=== PATIENT | female | born 1945 | race African-American/Black ===

== ENCOUNTER 2019-03-16 14:10 | Emergency (ER) | payer BC, MEDICARE, OTHER ==
[~2019-03-16] VITALS: Ht 160 cm; Wt 57.0 kg
[~2019-03-16 14:10] MED LIST: COUMADIN; LASIX
[2019-03-16] MEDS ORDERED: APIX5TAB PO (14:18)
[2019-03-16] MEDS ORDERED: TRAMADOL 50MG TABLET PO ONE (15:15)
[2019-03-16] MEDS ORDERED: IBUPROFEN 400MG TABLET PO ONE (15:15)
[2019-03-16 15:26] LABS: BASOPHILS % 0.8 % (0.0-2.0); EOSINOPHILS % 0.9 % (0.0-5.0); HEMATOCRIT. 36.6 % (36.0-48.0); HEMOGLOBIN. 12.4 g/dL (12.0-16.0); LYMPHOCYTES % 21.8 % (20.0-50.0); MEAN CORPUSCULAR HEMOGLOBIN 29.9 pg (28.0-32.0); MEAN PLATELET VOLUME 9.6 fl (7.4-10.4); MONOCYTES % 13.1 % (2.0-8.0); NEUTROPHILS % 63.4 % (40.0-76.0); PLATELET 195 x1000/uL (130-400); RED BLOOD CELL COUNT 4.16 mill/uL (4.2-5.4); RED CELL DISTRIBUTION WIDTH 13.5 % (11.6-14.6)
[2019-03-16 15:29] LABS: CHLORIDE 98 mEq/L (98-107)
[2019-03-16 15:31] LABS: INR 1.1; PARTIAL THROMBOPLASTIN TIME 28.6 sec (23.4-31.0)
[2019-03-16 17:59] VITALS: BP 126/56
== END 2019-03-16 18:02 | disposition home or self-care (01) ==
LOC: ER 14:10
DX: G62.9 Polyneuropathy, unspecified (principal); I10 Essential (primary) hypertension; Z86.718 Personal history of other venous thrombosis and embolism; Z79.01 Long term (current) use of anticoagulants
CPT/HCPCS: 36415; 71045; 93005; 93970; 99284

== ENCOUNTER 2023-07-08 08:30 | Inpatient (IN) | payer OTHER ==
[~2023-07-08] VITALS: Ht 157.5 cm; Wt 54.9 kg
[~2023-07-08 08:30] MED LIST changes: +APIX5TAB PO; +ATOR40TA70 MT; +BETA15CR5 TP; -COUMADIN; +DESO59LO TP; -LASIX; +LEVO-65 MT; +LOSA50TA41 MT; +THIO100C2 PO; +TIMO15DR12 EACHEYE
[2023-07-08 09:33] LABS: BASOPHILS % 0.7 % (0.0-2.0); EOSINOPHILS % 0.3 % (0.0-5.0); HEMOGLOBIN. 11.1 g/dL (12.0-16.0); LYMPHOCYTES % 17.1 % (20.0-50.0); MEAN CORPUSCULAR HEMOGLOBIN 28.9 pg (28.0-32.0); MEAN CORPUSCULAR HGB CONC 32.5 g/dL (31.0-37.0); MEAN CORPUSCULAR VOLUME 88.9 fL (81.0-99.0); MONOCYTES % 9.9 % (2.0-8.0); PLATELET 216 x1000/uL (130-400); RED BLOOD CELL COUNT 3.83 mill/uL (4.2-5.4); RED CELL DISTRIBUTION WIDTH 13.4 % (11.6-14.6); WHITE BLOOD COUNT 5.8 x1000/uL (4.5-11.0)
[2023-07-08] MEDS: MORPHINE SULFATE 4 MG/ML INJ (FOR IV/IM USE) IV STA (09:35)
[2023-07-08 09:51] LABS: PROTHROMBIN TIME 10.7 sec (9.6-11.0)
[2023-07-08 09:53] LABS: CLARITY URINE CLOUDY (CLEAR); COLOR URINE RED (YELLOW); GLUCOSE URINE NEGATIVE (NEGATIVE); KETONES URINE NEGATIVE (NEGATIVE); LEUKOCYTE ESTERASE URINE 3+ (NEGATIVE); NITRITE URINE POSITIVE (NEGATIVE); OCCULT BLOOD URINE 1+ (NEGATIVE); PROTEIN URINE 2+ (NEGATIVE); SPECIFIC GRAVITY URINE 1.017 (1.005-1.030); UROBILINOGEN URINE 0.2 E.U./dL (0.2-1.0)
[2023-07-08 09:54] LABS: ALANINE AMINOTRANSFERASE 16 IU/L (10-49); ALBUMIN 4.8 g/dL (3.2-4.8); ASPARTATE AMINOTRANSFERASE 26 IU/L (<34); BILIRUBIN TOTAL 0.7 mg/dL (0.1-1.0); CALCIUM 9.9 mg/dL (8.7-10.4); CARBON DIOXIDE 28 mEq/L (21-32); CHLORIDE 105 mEq/L (98-107); GLUCOSE 89 mg/dL (70-105); POTASSIUM 3.8 mEq/L (3.5-5.1); PROTEIN TOTAL 8.2 g/dL (6.0-8.3); SODIUM 138 mEq/L (136-145); UREA NITROGEN BLOOD 22 mg/dL (9-23)
[2023-07-08 10:17] LABS: BACTERIA URINE 1+; RBC URINE TNTC /hpf (0-2); SQUAMOUS EPITHELIAL CELL URINE 1+ /lpf (RARE/1+); WBC URINE 50-100 /hpf (0-2); YEAST URINE NONE SEEN
[2023-07-08] MEDS: HYDROMORPHONE HCL/PF 2MG/ML CPJ IV ONE (12:25)
[2023-07-08 16:19] VITALS: BP 142/55; PULSE 65; RESP 18; TEMP 96.4
[2023-07-08 20:00] VITALS: BP 112/78; PULSE 66; RESP 18; TEMP 98.1
[2023-07-08] MEDS ORDERED: ACETAMINOPHEN 325MG TABLET PO PRN (22:15)
[2023-07-08] MEDS ORDERED: CLONIDINE 0.1MG TABLET PO PRN (22:15)
[2023-07-08] MEDS ORDERED: IPRATROPIUM/ALBUTEROL 0.5-3(2.5)MG/3ML NEB HHN PRN (22:15)
[2023-07-09] VITALS: BP 115/55; PULSE 67; RESP 18; TEMP 97.5
[2023-07-09] MEDS: SODIUM CHLORIDE 0.9% 1,000 ML IV SCH (00:09)
[2023-07-09] MEDS: LEVOFLOXACIN 500MG PREMIX 100 ML IV SCH (00:09)
[2023-07-09 04:00] VITALS: BP 107/52; PULSE 63; RESP 18; TEMP 97.7
[2023-07-09] MEDS: ONDANSETRON HCL 4MG/2ML INJ IV PRN (05:47)
[2023-07-09] MEDS: HYDROCODONE/ACETAMINOPHEN 5/325MG TABLET PO PRN (05:47)
[2023-07-09 06:48] LABS: CREATINE KINASE 60 IU/L (34-145)
[2023-07-09 07:04] LABS: TROPONIN I HIGH SENSITIVITY 91 ng/L (3.0-34)
[2023-07-09 08:00] VITALS: BP 129/51; PULSE 58; RESP 19; TEMP 97.5
[2023-07-09 12:00] VITALS: BP 101/49; PULSE 55; RESP 18; TEMP 97.1
[2023-07-09 16:00] VITALS: BP 103/52; PULSE 61; RESP 18; TEMP 97.7
[2023-07-09] MEDS ORDERED: NALOXONE HCL 0.4MG/ML VIAL IV PRN (17:15)
[2023-07-09] MEDS: SODIUM CHLORIDE 0.45% 1,000 ML IV SCH (17:30)
[2023-07-09 18:51] LABS: CREATINE KINASE MB FRACTION 1.6 ng/mL (0.5-3.6)
[2023-07-09 20:00] VITALS: BP 114/43; PULSE 62; RESP 17; TEMP 97.9
[2023-07-09] MEDS: LEVOFLOXACIN 250MG PREMIX 50 ML IV SCH (23:17)
[2023-07-10] VITALS: BP 108/49; PULSE 67; RESP 19; TEMP 98.2
[2023-07-10 04:00] VITALS: BP 105/45; PULSE 61; RESP 18; TEMP 97.7
[2023-07-10 08:00] VITALS: BP 126/52; PULSE 65; RESP 18; TEMP 98
[2023-07-10 10:40] LABS: BASOPHILS % 0.1 % (0.0-2.0); HEMATOCRIT. 27.1 % (36.0-48.0); LYMPHOCYTES % 12.7 % (20.0-50.0); MEAN CORPUSCULAR HEMOGLOBIN 28.6 pg (28.0-32.0); MEAN CORPUSCULAR VOLUME 86.7 fL (81.0-99.0); MEAN PLATELET VOLUME 9.6 fl (7.4-10.4); MONOCYTES % 11.5 % (2.0-8.0); NEUTROPHILS % 75.7 % (40.0-76.0); PLATELET 151 x1000/uL (130-400); RED BLOOD CELL COUNT 3.13 mill/uL (4.2-5.4); RED CELL DISTRIBUTION WIDTH 13.4 % (11.6-14.6); WHITE BLOOD COUNT 6.1 x1000/uL (4.5-11.0)
[2023-07-10 11:14] LABS: ALANINE AMINOTRANSFERASE 8 IU/L (10-49); ALBUMIN 3.6 g/dL (3.2-4.8); ASPARTATE AMINOTRANSFERASE 18 IU/L (<34); BILIRUBIN TOTAL 0.4 mg/dL (0.1-1.0); CALCIUM 8.8 mg/dL (8.7-10.4); CARBON DIOXIDE 29 mEq/L (21-32); CHLORIDE 104 mEq/L (98-107); CREATINE KINASE 46 IU/L (34-145); CREATINE KINASE MB FRACTION 0.8 ng/mL (0.5-3.6); CREATININE 1.3 mg/dL (0.6-1.0); GLUCOSE 157 mg/dL (70-105); POTASSIUM 3.8 mEq/L (3.5-5.1); SODIUM 136 mEq/L (136-145); UREA NITROGEN BLOOD 19 mg/dL (9-23)
[2023-07-10 11:26] LABS: PROTEIN TOTAL 5.6 g/dL (6.0-8.3)
[2023-07-10 11:28] LABS: TROPONIN I HIGH SENSITIVITY 66 ng/L (3.0-34)
[2023-07-10 11:34] VITALS: BP 131/58; PULSE 73; RESP 18; TEMP 97.8
[2023-07-10 15:33] VITALS: BP 109/57; PULSE 61; RESP 18; TEMP 98
[2023-07-10 20:00] VITALS: BP 100/55; PULSE 63; RESP 20; TEMP 99
[2023-07-11] VITALS: BP 106/55; PULSE 61; RESP 20; TEMP 98.6
[2023-07-11 04:00] VITALS: BP 126/60; PULSE 65; RESP 20; TEMP 98.6
[2023-07-11 06:21] LABS: BASOPHILS % 0.5 % (0.0-2.0); EOSINOPHILS % 0.3 % (0.0-5.0); HEMATOCRIT. 25.7 % (36.0-48.0); HEMOGLOBIN. 8.6 g/dL (12.0-16.0); LYMPHOCYTES % 17.6 % (20.0-50.0); MEAN CORPUSCULAR HEMOGLOBIN 30.4 pg (28.0-32.0); MEAN CORPUSCULAR HGB CONC 33.5 g/dL (31.0-37.0); MEAN CORPUSCULAR VOLUME 90.6 fL (81.0-99.0); MEAN PLATELET VOLUME 10.4 fl (7.4-10.4); MONOCYTES % 12.4 % (2.0-8.0); NEUTROPHILS % 69.2 % (40.0-76.0); PLATELET 146 x1000/uL (130-400); RED BLOOD CELL COUNT 2.84 mill/uL (4.2-5.4); RED CELL DISTRIBUTION WIDTH 13.4 % (11.6-14.6); WHITE BLOOD COUNT 5.6 x1000/uL (4.5-11.0)
[2023-07-11 06:25] LABS: CALCIUM 8.8 mg/dL (8.7-10.4); CREATININE 1.1 mg/dL (0.6-1.0); POTASSIUM 4.3 mEq/L (3.5-5.1)
[2023-07-11 07:50] VITALS: BP 124/48; PULSE 68; RESP 20; TEMP 98.7
[2023-07-11 11:41] VITALS: BP 111/51; PULSE 69; RESP 18; TEMP 98
[2023-07-11 16:31] VITALS: BP 134/59; PULSE 66; RESP 19; TEMP 98.5
[2023-07-11] MEDS: LEVOFLOXACIN 250MG TABLET PO SCH (17:29)
[2023-07-11 20:00] VITALS: BP 139/58; PULSE 77; RESP 20; TEMP 98.2
[2023-07-12] VITALS: BP 142/67; PULSE 83; RESP 20; TEMP 98.2
[2023-07-12 04:00] VITALS: BP 124/50; PULSE 72; RESP 18; TEMP 97.9
[2023-07-12 08:02] VITALS: BP 112/48; PULSE 60; RESP 18; TEMP 98.7
[2023-07-12 11:39] VITALS: BP 106/40; PULSE 67; RESP 18; TEMP 97.5
[2023-07-12 16:26] VITALS: BP 150/58; PULSE 62; RESP 18; TEMP 97.9
[2023-07-12 18:21] LABS: BASOPHILS % 0.4 % (0.0-2.0); EOSINOPHILS % 0.1 % (0.0-5.0); HEMATOCRIT. 27.5 % (36.0-48.0); HEMOGLOBIN. 9.1 g/dL (12.0-16.0); LYMPHOCYTES % 15.7 % (20.0-50.0); MEAN CORPUSCULAR HEMOGLOBIN 29.4 pg (28.0-32.0); MEAN CORPUSCULAR HGB CONC 32.9 g/dL (31.0-37.0); MEAN CORPUSCULAR VOLUME 89.4 fL (81.0-99.0); MEAN PLATELET VOLUME 9.5 fl (7.4-10.4); MONOCYTES % 13.3 % (2.0-8.0); NEUTROPHILS % 70.5 % (40.0-76.0); PLATELET 176 x1000/uL (130-400); RED BLOOD CELL COUNT 3.08 mill/uL (4.2-5.4); RED CELL DISTRIBUTION WIDTH 13.3 % (11.6-14.6); WHITE BLOOD COUNT 5.8 x1000/uL (4.5-11.0)
[2023-07-12 18:37] LABS: ALANINE AMINOTRANSFERASE 8 IU/L (10-49); ASPARTATE AMINOTRANSFERASE 19 IU/L (<34); BILIRUBIN TOTAL 0.6 mg/dL (0.1-1.0); CALCIUM 8.9 mg/dL (8.7-10.4); CARBON DIOXIDE 27 mEq/L (21-32); CHLORIDE 105 mEq/L (98-107); CREATININE 0.9 mg/dL (0.6-1.0); GLUCOSE 88 mg/dL (70-105); PROTEIN TOTAL 6.4 g/dL (6.0-8.3); SODIUM 136 mEq/L (136-145); UREA NITROGEN BLOOD 11 mg/dL (9-23)
[2023-07-12 20:00] VITALS: BP 142/62; PULSE 74; RESP 20; TEMP 98.5
[2023-07-13] VITALS: BP 110/51; PULSE 67; RESP 18; TEMP 97.3
[2023-07-13 04:00] VITALS: BP 106/50; PULSE 66; RESP 18; TEMP 97.8
[2023-07-13 08:00] VITALS: BP 134/50; PULSE 62; RESP 18; TEMP 96.1
[2023-07-13 12:00] VITALS: BP 119/49; PULSE 56; RESP 18; TEMP 97.7
[2023-07-13] MEDS: LEVOFLOXACIN 250MG TABLET PO SCH (12:34)
[2023-07-13 13:09] VITALS: BP 119/59; PULSE 71; TEMP 98.8; O2SAT 100
[2023-07-14] MEDS ORDERED: LEVOFLOXACIN 500MG TABLET PO SCH (11:00)
== END 2023-07-13 13:45 | disposition home or self-care (01) | DRG 690 ==
LOC: ER 08:30 → 5WST 12:43 → EDBEDREQTM 12:45 → EDBEDREQ 12:45 → EDBEDREQSVC 12:45 → 6EST 15:50 → 7WST 07-09 09:32
PROVIDERS: ADMIT Internal Medicine; ATTEND Internal Medicine
DX: N13.6 Pyonephrosis (principal); N13.9 Obstructive and reflux uropathy, unspecified; I10 Essential (primary) hypertension; Z79.01 Long term (current) use of anticoagulants; Z85.3 Personal history of malignant neoplasm of breast; Z85.528 Personal history of other malignant neoplasm of kidney; Z88.0 Allergy status to penicillin; Z79.899 Other long term (current) drug therapy; R31.9 Hematuria, unspecified
CPT/HCPCS: 36415; 74176; 80048; 80053; 81003; 82550; 82553; 83605; 84484; 85025; 93970; 99291; J1170; J1956; J2270; J2405